=== PATIENT | male | born 1965 | race Two or more races ===

== ENCOUNTER 2021-02-28 01:42 | Inpatient (IN) | payer OTHER ==
[~2021-02-28] VITALS: Ht 170.2 cm; Wt 77.1 kg
[2021-02-28] MEDS ORDERED: SYNTHROID75 MCG (02:08)
== END 2021-03-08 10:29 | disposition home or self-care (01) | DRG 603 ==
LOC: ER 01:42 → MEDI 11:34
PROVIDERS: ADMIT Internal Medicine; ATTEND Internal Medicine
DX: L03.116 Cellulitis of left lower limb (principal); E03.8 Other specified hypothyroidism; Z20.822 Contact with and (suspected) exposure to COVID-19